=== PATIENT | male | born 1995 | race African-American/Black ===

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

== ENCOUNTER 2021-02-08 07:08 | Emergency (ER) | payer SELFPAY ==
[2021-02-08 07:11] VITALS: RESP 18
[2021-02-08] MEDS ORDERED: KETOROLAC 15 MG/ML 1 ML VIAL IVP STA (07:26)
[2021-02-08] MEDS ORDERED: METOCLOPRAMIDE 5 MG/ML 2 ML VIAL IVP STA (07:26)
[2021-02-08] MEDS ORDERED: diphenhydrAMINE 50 MG/ML 1 ML VIAL IVP STA (07:26)
[2021-02-08] MEDS ORDERED: DEXAMETHASONE SOD PHOSPHATE 10 MG/ML 1 ML VIAL IV STA (07:27)
[2021-02-08] MEDS ORDERED: SODIUM CHLORIDE 0.9% 1,000 ML IV ONE (07:27)
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
[2021-02-08 08:11] LABS: Basophils # (A) 0.1 k/uL (0-0.2); Basophils % (A) 1 %; Eosinophils # (A) 0.2 k/uL (0-0.7); Eosinophils % (A) 2 %; HCT 44.4 % (39.0-53.0); HGB 14.5 gm/dL (13.0-17.5); Lymphocytes # (A) 0.6 k/uL (1.0-4.8); Lymphocytes % (A) 8 %; MCH 33.2 pg (25.0-35.0); MCHC 32.6 g/dL (31.0-37.0); MCV 101.8 fL (80.0-100.0); Macrocytosis Slight; Mean Platelet Volume 7.2; Monocytes # (A) 0.6 k/uL (0-1.0); Monocytes % (A) 8 %; Neutrophils # (A) 5.8 k/uL (1.3-7.7); Neutrophils % (A) 79 %; Platelet Count 199 k/uL (150-450); RBC 4.36 m/uL (4.30-5.90); RDW 12.9 % (11.5-15.5); WBC 7.4 k/uL (3.8-10.6)
[2021-02-08 08:23] LABS: ALT 34 U/L (4-49); AST 38 U/L (17-59); African American GFR (CKD) >90 (>60 ml/min/1.73 sqM); Albumin 4.3 g/dL (3.5-5.0); Alkaline Phosphatase 70 U/L (38-126); Anion Gap 9 mmol/L; Blood Urea Nitrogen 15 mg/dL (9-20); Calcium 9.5 mg/dL (8.4-10.2); Carbon Dioxide 23 mmol/L (22-30); Chloride 107 mmol/L (98-107); Glucose 95 mg/dL (74-99); Non-African American GFR(CKD) >90 (>60 ml/min/1.73 sqM); Potassium 4.3 mmol/L (3.5-5.1); Sodium 139 mmol/L (137-145); Total Bilirubin 0.4 mg/dL (0.2-1.3)
--- NOTE | 2021-02-08 08:50 | ED ---
General Adult HPI - General Chief complaint: Headache Stated complaint: Headache, Chills Time Seen by Provider: 02/08/21 07:10 Source: patient Mode of arrival: ambulatory - History of Present Illness Initial comments: patient is a 25-year-old male with past medical history of mild intermittent asthma who presents emergency Department with reported body aches and headache. Patient had symptoms that started this morning. 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 He is concerned for Covid and is not vaccinated. he denies any neck stiffness , chest pain or shortness of breath. No nausea or vomiting. denies any diarrhea. no known sick contacts. no other alleviating, last cleaner modifying factors - Related Data Home Medications Medication Instructions Recorded Confirmed No Known Home Medications 09/03/16 09/03/16 Allergies Allergy/AdvReac Type Severity Reaction Status Date / Time No Known Allergies Allergy Verified 02/08/21 07:11 Review of Systems ROS Statement: Those systems with pertinent positive or pertinent negative responses have been documented in the HPI. ROS Other: All systems not noted in ROS Statement are negative. Past Medical History Past Medical History: No Reported History History of Any Multi-Drug Resistant Organisms: None Reported Past Surgical History: No Surgical Hx Reported Past Psychological History: No Psychological Hx Reported Smoking Status: Current every day smoker Past Alcohol Use History: None Reported Past Drug Use History: None Reported General Exam General appearance: alert, in no apparent distress Head exam: Present: atraumatic, normocephalic, normal inspection Eye exam: Present: normal appearance, PERRL, EOMI. Absent: scleral icterus, conjunctival injection, periorbital swelling ENT exam: Present: normal exam, mucous membranes moist Neck exam: Present: normal inspection. Absent: tenderness, meningismus, lymphadenopathy Respiratory exam: Present: normal lung sounds bilaterally. Absent: respiratory distress, wheezes, rales, rhonchi, stridor Cardiovascular Exam: Present: regular rate, normal rhythm, normal heart sounds. Absent: systolic murmur, diastolic murmur, rubs, gallop, clicks GI/Abdominal exam: Present: soft, normal bowel sounds. Absent: distended, tenderness, guarding, rebound, rigid Extremities exam: Present: normal inspection, full ROM, normal capillary refill. Absent: tenderness, pedal edema, joint swelling, calf tenderness Back exam: Present: normal inspection Neurological exam: Present: alert, oriented X3, CN II-XII intact Psychiatric exam: Present: normal affect, normal mood Skin exam: Present: warm, dry, intact, normal color. Absent: rash Course Vital Signs 02/08/21 02/08/21 02/08/21 07:09 11:30 12:41 Temperature 98.9 F 98.4 F 98.4 F Pulse Rate 88 74 74 Respiratory 18 18 18 Rate Blood Pressure 120/61 121/77 121/77 O2 Sat by Pulse 98 99 99 Oximetry Medical Decision Making - Medical Decision Making Upon arrival the patient was placed into room 14. A thorough history and physical exam is performed. IV is established the patient is given a migraine cocktail. Laboratory studies were conducted. Patient was swabbed for Covid. Chest x-ray is performed. Laboratory studies are remarkable for a positive Covid swab. Chest x-ray demonstrates no acute process. Patient is reevaluated and has improvement in his headache. He is offered Regen infusion at this time. Patient does receive infusion without issue. He will be discharged home and is to follow-up with his primary care doctor within 2-4 days. Ronnye until his symptoms improve. Return to the emergency room for any new or worsening symptoms. Patient was discharged home in stable condition - Lab Data Result diagrams: 02/08/21 07:57 02/08/21 07:57 Lab Results 02/08/21 02/08/21 02/08/21 Range/Units 07:57 07:57 07:57 WBC 7.4 (3.8-10.6) k/uL RBC 4.36 (4.30-5.90) m/uL Hgb 14.5 (13.0-17.5) gm/dL Hct 44.4 (39.0-53.0) % MCV 101.8 H (80.0-100.0) fL MCH 33.2 (25.0-35.0) pg MCHC 32.6 (31.0-37.0) g/dL RDW 12.9 (11.5-15.5) % Plt Count 199 (150-450) k/uL MPV 7.2 Neutrophils % 79 % Lymphocytes % 8 % Monocytes % 8 % Eosinophils % 2 % Basophils % 1 % Neutrophils # 5.8 (1.3-7.7) k/uL Lymphocytes # 0.6 L (1.0-4.8) k/uL Monocytes # 0.6 (0-1.0) k/uL Eosinophils # 0.2 (0-0.7) k/uL Basophils # 0.1 (0-0.2) k/uL Macrocytosis Slight Sodium 139 (137-145) mmol/L Potassium 4.3 (3.5-5.1) mmol/L Chloride 107 (98-107) mmol/L Carbon Dioxide 23 (22-30) mmol/L Anion Gap 9 mmol/L BUN 15 (9-20) mg/dL Creatinine 0.88 (0.66-1.25) mg/dL Est GFR (CKD-EPI)AfAm >90 (>60 ml/min/1.73 sqM) Est GFR (CKD-EPI)NonAf >90 (>60 ml/min/1.73 sqM) Glucose 95 (74-99) mg/dL Calcium 9.5 (8.4-10.2) mg/dL Total Bilirubin 0.4 (0.2-1.3) mg/dL AST 38 (17-59) U/L ALT 34 (4-49) U/L Alkaline Phosphatase 70 (38-126) U/L Total Protein 7.0 (6.3-8.2) g/dL Albumin 4.3 (3.5-5.0) g/dL Coronavirus (PCR) Detected A (Not Detectd) Disposition Clinical Impression: COVID, Headache Disposition: HOME SELF-CARE Condition: Stable Instructions (If sedation given, give patient instructions): Coronavirus Disease 2019 (COVID-19) Additional Instructions: Please follow up with your PCP in 2-4 days. Return to the ED for any new or worsening symptoms. Is patient prescribed a controlled substance at d/c from ED?: No Referrals: None,Stated [Primary Care Provider] - 1-2 days Time of Disposition: 08:50
[2021-02-08] MEDS ORDERED: SODIUM CHLORIDE 0.9% 50 ML IVPB ONE (10:45)
[2021-02-08] MEDS ORDERED: CASIRIVIMAB (REGN10933) (EUA) 600 MG, IMDEVIMAB (REGN10987) (EUA) 600 MG in SODIUM CHLO... IVPB ONE (11:15)
[2021-02-08 11:53] VITALS: BP 121/77; PULSE 74; TEMP 98.4
== END 2021-02-08 12:41 | disposition home or self-care (01) ==
LOC: EC 07:08
DX: U07.1 COVID-19 (principal); R51.9 Headache, unspecified; F17.200 Nicotine dependence, unspecified, uncomplicated; J45.20 Mild intermittent asthma, uncomplicated
CPT/HCPCS: 36415; 80053; 85025; 87635; 71046; 99284; 96365; 96375; 96361; J1200; J1100; J2765; J1885; Q0243

== ENCOUNTER 2022-05-05 09:39 | Emergency (ER) | payer OTHER ==
[2022-05-05 09:47] VITALS: BP 110/59; PULSE 94; RESP 20; TEMP 97.6
[2022-05-05] MEDS ORDERED: dexAMETHasone 2 MG TAB PO STA (10:02)
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
== END 2022-05-05 10:23 | disposition home or self-care (01) ==
LOC: EC 09:39
DX: R22.30 Localized swelling, mass and lump, unspecified upper limb (principal); J45.909 Unspecified asthma, uncomplicated; F17.200 Nicotine dependence, unspecified, uncomplicated
CPT/HCPCS: 99283; J8540

== ENCOUNTER 2022-06-11 06:29 | Emergency (ER) | payer OTHER ==
[2022-06-11 06:48] VITALS: TEMP 98.5
[2022-06-11] MEDS ORDERED: KETOROLAC 15 MG/ML 1 ML VIAL IVP STA (07:02)
[2022-06-11] MEDS ORDERED: diphenhydrAMINE 50 MG/ML 1 ML VIAL IVP STA (07:02)
[2022-06-11] MEDS ORDERED: METOCLOPRAMIDE 5 MG/ML 2 ML VIAL IVP STA (07:02)
[2022-06-11] MEDS ORDERED: SODIUM CHLORIDE 0.9% 1,000 ML IV STA (07:02)
--- NOTE | 2022-06-11 07:08 | ED ---
General Adult HPI - General Chief complaint: Syncope Stated complaint: Headache, Syncope Time Seen by Provider: 06/11/22 06:49 Source: patient, RN notes reviewed Mode of arrival: wheelchair Limitations: no limitations - History of Present Illness Initial comments: 27-year-old male presents emergency Department with chief complaint of headache, syncopal episode. Patient states that he woke up with a headache which is very atypical states is very severe in the frontal aspect. Patient states he also passed out this morning which is not unusual for the patient per significant other. 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 Patient states he does not feel lightheaded or dizzy at this time denies fevers chills cough or cold-like symptoms no chest pain or shortness breath no focal weakness denies any head trauma with this fall. - Related Data Previous Rx's Medication Instructions Recorded dexAMETHasone [Decadron] 4 mg PO DAILY #3 tab 05/05/22 Allergies Allergy/AdvReac Type Severity Reaction Status Date / Time No Known Allergies Allergy Verified 06/11/22 06:48 Review of Systems ROS Statement: Those systems with pertinent positive or pertinent negative responses have been documented in the HPI. ROS Other: All systems not noted in ROS Statement are negative. Past Medical History Past Medical History: Asthma History of Any Multi-Drug Resistant Organisms: None Reported Past Surgical History: No Surgical Hx Reported Past Psychological History: No Psychological Hx Reported Smoking Status: Current every day smoker Past Alcohol Use History: None Reported Past Drug Use History: None Reported General Exam General appearance: alert, in no apparent distress Head exam: Present: atraumatic, normocephalic, normal inspection Eye exam: Present: normal appearance, PERRL, EOMI. Absent: scleral icterus, conjunctival injection, periorbital swelling ENT exam: Present: normal exam, normal oropharynx, mucous membranes moist Neck exam: Present: normal inspection, full ROM. Absent: tenderness, meningismus, lymphadenopathy Respiratory exam: Present: normal lung sounds bilaterally. Absent: respiratory distress, wheezes, rales, rhonchi, stridor Cardiovascular Exam: Present: regular rate, normal rhythm, normal heart sounds. Absent: systolic murmur, diastolic murmur, rubs, gallop, clicks Neurological exam: Present: alert, oriented X3, CN II-XII intact. Absent: motor sensory deficit Skin exam: Present: warm, dry, intact, normal color. Absent: rash Course Vital Signs 06/11/22 06/11/22 06/11/22 06:41 07:14 07:19 Temperature 98.5 F Pulse Rate 79 Pulse Rate [ 75 Right Sitting] Pulse Rate [ 97 Right Standing] Pulse Rate [ 84 Right Supine Pulse Oximetery ] Respiratory 19 16 Rate Blood Pressure 128/73 Blood Pressure 127/68 [Right Arm Sitting] Blood Pressure 118/80 [Right Arm Standing] Blood Pressure 120/73 [Right Arm Supine] O2 Sat by Pulse 99 Oximetry EKG Findings - EKG Comments: EKG Findings:: EKG performed at 7:32 sinus rhythm rate of 71 MT 178 QRS 91 QT/QTC 343/366 - EKG Results: EKG: interpreted by MAO Medical Decision Making - Medical Decision Making 27-year-old male presented for migraine-type headache which is atypical for p atient CT was obtained given patient's symptoms CT interpreted by me and radiology no acute process. Patient's laboratory unremarkable patient is currently asymptomatic denies chest pain or shortness of breath. Patient donates plasma and has is had a vasovagal syncope. Patient denies increase flu ids, patient denies any needs to follow-up PCP be cleared dryive - Lab Data Result diagrams: 06/11/22 07:50 06/11/22 07:50 Lab Results 06/11/22 06/11/22 Range/Units 07:50 07:50 WBC 6.1 (3.8-10.6) k/uL RBC 4.46 (4.30-5.90) m/uL Hgb 14.7 (13.0-17.5) gm/dL Hct 44.6 (39.0-53.0) % MCV 100.0 (80.0-100.0) fL MCH 33.0 (25.0-35.0) pg MCHC 33.0 (31.0-37.0) g/dL RDW 11.9 (11.5-15.5) % Plt Count 279 (150-450) k/uL MPV 7.2 Neutrophils % 60 % Lymphocytes % 29 % Monocytes % 6 % Eosinophils % 2 % Basophils % 1 % Neutrophils # 3.7 (1.3-7.7) k/uL Lymphocytes # 1.8 (1.0-4.8) k/uL Monocytes # 0.4 (0-1.0) k/uL Eosinophils # 0.1 (0-0.7) k/uL Basophils # 0.0 (0-0.2) k/uL Sodium 140 (137-145) mmol/L Potassium 4.2 (3.5-5.1) mmol/L Chloride 113 H (98-107) mmol/L Carbon Dioxide 23 (22-30) mmol/L Anion Gap 4 mmol/L BUN 12 (9-20) mg/dL Creatinine 0.97 (0.66-1.25) mg/dL Est GFR (CKD-EPI)AfAm >90 (>60 ml/min/1.73 sqM) Est GFR (CKD-EPI)NonAf >90 (>60 ml/min/1.73 sqM) Glucose 91 (74-99) mg/dL Calcium 8.8 (8.4-10.2) mg/dL Magnesium 1.8 (1.6-2.3) mg/dL Total Bilirubin 0.4 (0.2-1.3) mg/dL AST 32 (17-59) U/L ALT 28 (4-49) U/L Alkaline Phosphatase 57 (38-126) U/L Total Protein 6.4 (6.3-8.2) g/dL Albumin 3.9 (3.5-5.0) g/dL Disposition Clinical Impression: Vasovagal syncope, Migraine Disposition: HOME SELF-CARE Condition: Stable Instructions (If sedation given, give patient instructions): Syncope (ED) Additional Instructions: Please return to the Emergency Department if symptoms worsen or any other concerns. Is patient prescribed a controlled substance at d/c from ED?: No Referrals: None,Stated [Primary Care Provider] - 1-2 days Time of Disposition: 08:42
[2022-06-11 07:15] VITALS: RESP 16
[2022-06-11 07:56] LABS: Basophils % (A) 1 %; Eosinophils # (A) 0.1 k/uL (0-0.7); Eosinophils % (A) 2 %; HCT 44.6 % (39.0-53.0); HGB 14.7 gm/dL (13.0-17.5); Lymphocytes # (A) 1.8 k/uL (1.0-4.8); Lymphocytes % (A) 29 %; Mean Platelet Volume 7.2; Monocytes # (A) 0.4 k/uL (0-1.0); Monocytes % (A) 6 %; Neutrophils # (A) 3.7 k/uL (1.3-7.7); Neutrophils % (A) 60 %; Platelet Count 279 k/uL (150-450); RBC 4.46 m/uL (4.30-5.90); RDW 11.9 % (11.5-15.5); WBC 6.1 k/uL (3.8-10.6)
[2022-06-11 08:06] LABS: ALT 28 U/L (4-49); AST 32 U/L (17-59); African American GFR (CKD) >90 (>60 ml/min/1.73 sqM); Albumin 3.9 g/dL (3.5-5.0); Alkaline Phosphatase 57 U/L (38-126); Anion Gap 4 mmol/L; Blood Urea Nitrogen 12 mg/dL (9-20); Calcium 8.8 mg/dL (8.4-10.2); Carbon Dioxide 23 mmol/L (22-30); Chloride 113 mmol/L (98-107); Glucose 91 mg/dL (74-99); Magnesium 1.8 mg/dL (1.6-2.3); Non-African American GFR(CKD) >90 (>60 ml/min/1.73 sqM); Potassium 4.2 mmol/L (3.5-5.1); Sodium 140 mmol/L (137-145); Total Bilirubin 0.4 mg/dL (0.2-1.3); Total Protein 6.4 g/dL (6.3-8.2)
--- NOTE | 2022-06-11 08:31 | CT ---
EXAMINATION TYPE: CT brain wo con DATE OF EXAM: 06/11/2022 COMPARISON: 09/03/2016 HISTORY: Severe headache CT DLP: [address] of the brain was performed. The ventricles, basal cisterns and sulci overlying the cerebral convexities demonstrate a normal appe arance. There is no evidence for intracranial hemorrhage or sulcal effacement. No mass effects are seen. Osseous calvarium is intact. If symptoms persist consider MRI as clinically warranted. IMPRESSION: 1. No acute intracranial process is seen at this time.
[2022-06-11 09:23] VITALS: BP 113/70; PULSE 68
== END 2022-06-11 09:23 | disposition home or self-care (01) ==
LOC: EC 06:29
DX: R55 Syncope and collapse (principal); G43.909 Migraine, unspecified, not intractable, without status migrainosus; J45.909 Unspecified asthma, uncomplicated; F17.200 Nicotine dependence, unspecified, uncomplicated
CPT/HCPCS: 36415; 93005; 80053; 83735; 85025; 70450; 99284; 96374; 96375 ×2; 96361 ×2; J1200; J2765; J1885

== ENCOUNTER 2024-02-19 06:34 | Day surgery (SDC) | payer SELFPAY ==
[~2024-02-19 06:34] MED LIST: SODIUM CHLORIDE 0.9% 1,000 ML IV SCH
[2024-02-19] MEDS: SODIUM CHLORIDE 0.9% 500 ML 500 ML IV ONE (07:16)
[2024-02-19 07:20] VITALS: BP 119/65; PULSE 59; RESP 16; TEMP 97.4
--- NOTE | 2024-02-19 11:38 | P.EPPROC ---
- EP Procedure Note Electrophysiology Procedure Note: Diagnosis Recurrent syncope Twelve-lead EKG shows sinus rhythm normal LA early repolarization abnormality, normal variation Normal QT interval, no delta waves no epsilon waves normal ST segments in the precordial leads Tilt table test per protocol Baseline blood pressure 130/64 mmHg pulse rate in the 60s Patient was tilted upright in angle of 70 degrees per protocol No change in heart rate or blood pressure Patient reported lightheadedness repeatedly without any change in heart rate or blood pressure Impression Normal twelve-lead EKG Normal heart rate and blood pressure response to upright tilting Patient complained of several episodes of lightheadedness WITHOUT any associated change in heart rate or blood pressure
== END 2024-02-19 08:50 | disposition home or self-care (01) ==
LOC: CATHEP 06:34
PROVIDERS: ATTEND Internal Medicine Clinical Cardiac Electrophysiology
DX: R55 Syncope and collapse
CPT/HCPCS: 93660

== ENCOUNTER 2024-04-26 19:49 | Emergency (ER) | payer SELFPAY ==
[2024-04-26 20:54] LABS: Basophils % (A) 0 %; Eosinophils # (A) 0.1 k/uL (0-0.7); Eosinophils % (A) 2 %; HCT 40.2 % (39.0-53.0); HGB 13.1 gm/dL (13.0-17.5); Lymphocytes # (A) 2.5 k/uL (1.0-4.8); Lymphocytes % (A) 36 %; MCH 32.3 pg (25.0-35.0); MCHC 32.5 g/dL (31.0-37.0); MCV 99.4 fL (80.0-100.0); Mean Platelet Volume 6.9; Monocytes # (A) 0.4 k/uL (0-1.0); Monocytes % (A) 6 %; Neutrophils # (A) 3.8 k/uL (1.3-7.7); Neutrophils % (A) 54 %; Platelet Count 239 k/uL (150-450); RBC 4.04 m/uL (4.30-5.90); RDW 12.6 % (11.5-15.5)
--- NOTE | 2024-04-26 20:58 | XR ---
EXAMINATION TYPE: XR chest 2V DATE OF EXAM: 04/26/2024 8:49 PM COMPARISON: Chest radiographs from 02/08/2021 CLINICAL INDICATION: Male, 29 years old with history of Chest Pain; TECHNIQUE: XR chest 2V Frontal and lateral views of the chest. FINDINGS: Lungs/Pleura: There is no evidence of pleural effusion, focal consolidation, or pneumothorax. Pulmonary vascularity: Unremarkable. Heart/mediastinum: Cardiomediastinal silhouette is unremarkable. Musculoskeletal: No acute osseous pathology. IMPRESSION: No acute cardiopulmonary disease/process. [facility], , 04/26/2024 8:56 PM
[2024-04-26 21:11] LABS: Prothrombin Time 10.7 sec (10.0-12.5)
[2024-04-26 21:22] LABS: ALT 32 U/L (4-49); AST 34 U/L (17-59); African American GFR (CKD) >90 (>60 ml/min/1.73 sqM); Albumin 4.4 g/dL (3.5-5.0); Alkaline Phosphatase 62 U/L (38-126); Anion Gap 6 mmol/L; Blood Urea Nitrogen 15 mg/dL (9-20); Calcium 9.2 mg/dL (8.4-10.2); Carbon Dioxide 24 mmol/L (22-30); Chloride 109 mmol/L (98-107); Glucose 90 mg/dL (74-99); Magnesium 1.7 mg/dL (1.6-2.3); Non-African American GFR(CKD) >90 (>60 ml/min/1.73 sqM); Potassium 3.7 mmol/L (3.5-5.1); Sodium 139 mmol/L (137-145); Total Bilirubin 0.4 mg/dL (0.2-1.3); Total Protein 7.2 g/dL (6.3-8.2)
[2024-04-26] MEDS: ASPIRIN 81 MG PO STA (21:31)
--- NOTE | 2024-04-26 22:19 | ED ---
Chest Pain HPI - General Chief Complaint: Chest Pain Stated Complaint: Chest Pain,SOB Time Seen by Provider: 04/26/24 20:43 Source: patient Mode of arrival: ambulatory Limitations: no limitations - History of Present Illness Initial Comments: 29-year-old male presenting with chief complaint of chest pain. Patient states that today he was running around playing with his son when he started to have chest pain and had a near syncopal event. Patient states that he is had these episodes in the past and is currently following with Dr. Grady. Patient has had a stress test, tilt table test, and automotive general sales manager, he has an echo scheduled for may. He then had another episode later on today. The pain is a pressure-like pain on the left side of his chest. He did have some shortness of breath during the episode as well. He denies any alleviating or aggravating factors. No abdominal pain, nausea, vomiting. No lower extremity swelling. No recent surgery, travel, or hormone use. No cough, congestion, sore throat, fever, chills. - Related Data Home Medications Medication Instructions Recorded Confirmed Albuterol Inhaler [Ventolin Hfa 1 - 2 puff INHALATION Q6H PRN 02/18/24 02/19/24 Inhaler] Allergies Allergy/AdvReac Type Severity Reaction Status Date / Time No Known Allergies Allergy Verified 02/19/24 07:23 Review of Systems ROS Statement: Those systems with pertinent positive or pertinent negative responses have been documented in the HPI. ROS Other: All systems not noted in ROS Statement are negative. EKG Findings - EKG Comments: EKG Findings:: Sinus rhythm ventricular rate 81. ID interval 180. QRS 92. QT 334. QTc 372. Normal axis. Past Medical History Past Medical History: Asthma, Syncope Additional Past Medical History / Comment(s): last summer had a few episodes of passing out, has happened several times since then, very brief episodes, family hx. of long QT, see Dr Grady H & P History of Any Multi-Drug Resistant Organisms: None Reported Past Surgical History: No Surgical Hx Reported Additional Past Anesthesia/Blood Transfusion Reaction / Comment(s): no family hx of anesthesia problems Past Psychological History: No Psychological Hx Reported Smoking Status: Current every day smoker Past Alcohol Use History: Occasional Past Drug Use History: None Reported General Exam Limitations: no limitations General appearance: alert, in no apparent distress Head exam: Present: atraumatic, normocephalic, normal inspection Eye exam: Present: normal appearance, PERRL, EOMI Neck exam: Present: normal inspection. Absent: meningismus Respiratory exam: Present: normal lung sounds bilaterally. Absent: respiratory distress, wheezes, rales, rhonchi, stridor Cardiovascular Exam: Present: regular rate, normal rhythm, normal heart sounds. Absent: systolic murmur, diastolic murmur, rubs, gallop, clicks Extremities exam: Absent: pedal edema Neurological exam: Present: alert, oriented X3 Psychiatric exam: Present: normal affect, normal mood Skin exam: Present: warm, dry, normal color Course Vital Signs 04/26/24 04/26/24 04/26/24 19:51 21:33 22:30 Temperature 98.2 F 98.1 F Pulse Rate 87 87 75 Respiratory 18 16 18 Rate Blood Pressure 139/87 132/70 113/72 O2 Sat by Pulse 100 99 99 Oximetry Chest Pain MDM - MDM Was pt. sent in by a medical professional or institution (Dr. PA, CAP LINING MACHINE OPERATOR, urgent care, hospital, or residential...) When possible be specific @ -No Did you speak to anyone other than the patient for history (EMS, parent, family, police, friend...)? What history was obtained from this source @ -No Did you review nursing and triage notes (agree or disagree)? Why? @ -I reviewed and agree with nursing and triage notes Were old charts reviewed (outside hosp., previous admission, EMS record, old EKG, old radiological studies, urgent care reports/EKG's, residential records)? Report findings @ -No old charts were reviewed Differential Diagnosis (chest pain, altered mental status, abdominal pain women, abdominal pain men, vaginal bleeding, weakness, fever, dyspnea, syncope, headache, dizziness, GI bleed, back pain, seizure, CVA, palpatations, mental health, musculoskeletal)? @ -MDM Differential Chest Pain: Stable Angina, Unstable Angina, STEMI, NSTEMI Aortic Dissection, Pneumothorax, Musculoskeletal, Esophageal Spasm GERD, Cholecystitis, Pancreatitis, Zoster This is not meant to be an all-inclusive list. EKG interpreted by me (3pts min.). @ -As above X-rays interpreted by me (1pt min.). @Chest-X-ray shows no acute process CT interpreted by me (1pt min.). @ -None done U/S interpreted by me (1pt. min.). @ -None done What testing was considered but not performed or refused? (CT, X-rays, U/S, labs )? Why? @ -I offered to admit the patient for an echo, patient states he would prefer to be discharged home and follow-up with his dieing out machine operator What meds were considered but not given or refused? Why? @ -None Did you discuss the management of the patient with other professionals (professionals i.e. DrKsenia, PA, CAP LINING MACHINE OPERATOR, lab, RT, psych nurse, case management social worker, pre assembly wirer, teacher, booking police officer, supervisor case loading)? Give summary @ -No Was smoking cessation discussed for >3mins.? @ -No Was critical care preformed (if so, how long)? @ -No Were there social determinants of health that impacted care today? How? (H omelessness, low income, unemployed, alcoholism, drug addiction, transportation, low edu. Level, literacy, decrease access to med. care, [facility], rehab)? @ -No Was there de-escalation of care discussed even if they declined (Discuss DNR or withdrawal of care, Hospice)? DNR status @ -No What co-morbidities impacted this encounter? (DM, HTN, Smoking, COPD, CAD, Cancer, CVA, ARF, Chemo, Hep., AIDS, mental health diagnosis, sleep apnea, morbid obesity)? @ -None Was patient admitted / discharged? Hospital course, mention meds given and route, prescriptions, significant lab abnormalities, going to OR and other pertinent info. @ -29-year-old male presenting with chief complaint of chest pain. Patient also admits to near syncopal episode. Patient has had previous episodes of the symptoms, he is currently following with cardiology and has had multiple tests performed. History and physical examination are conducted. Heart and lungs are clear to auscultation. Lab work is essentially unremarkable. Chest x-ray shows no acute process and EKG shows sinus rhythm with no ischemic changes. On reassessment the patient is resting comfortably. Educated the patient on today's findings. I offered to admit the patient. Patient would prefer discharge home and following up with his dieing out machine operator. Patient is educated on return parameters. Discharged. Follow-up with PCP. Report back to ER with any new or worsening symptoms. Discussed return parameters and answered all questions. Patient conveyed verbal understanding and agreed to the plan. I discussed this case in detail with my attending Dr. Wolfe Undiagnosed new problem with uncertain prognosis? @ -No Drug Therapy requiring intensive monitoring for toxicity (Heparin, Nitro, Insulin, Cardizem)? @ -No Were any procedures done? @ -No Diagnosis/symptom? @ -Chest pain Acute, or Chronic, or Acute on Chronic? @ -Acute Uncomplicated (without systemic symptoms) or Complicated (systemic symptoms)? @ -Default Side effects of treatment? @ -No Exacerbation, Progression, or Severe Exacerbation? @ -No Disposition Clinical Impression: Chest pain Disposition: HOME SELF-CARE Condition: Fair Instructions (If sedation given, give patient instructions): Chest Pain (ED) Additional Instructions: Follow-up with your PCP and dieing out machine operator. Report back to ER with any new or worsening symptoms. You will need an echocardiogram and is important that you follow-up regarding this Is patient prescribed a controlled substance at d/c from ED?: No Referrals: None,Stated [Primary Care Provider] - 1-2 days Nahid Grady MD [STAFF PHYSICIAN] - 1-2 days [facility] [NON-STAFF] - 1-2 days Time of Disposition: 22:19
[2024-04-26 22:32] VITALS: BP 113/72; PULSE 75; RESP 18; TEMP 98.1
== END 2024-04-26 22:30 | disposition home or self-care (01) ==
LOC: EC 19:49
DX: R07.89 Other chest pain (principal); F17.200 Nicotine dependence, unspecified, uncomplicated
CPT/HCPCS: 36415; 71046; 80053; 83735; 84484; 85025; 85610; 85730; 93005; 99285

== ENCOUNTER 2024-06-06 16:36 | Observation (INO) | payer OTHER ==
[2024-06-06] MEDS: SODIUM CHLORIDE 0.9% 1,000 ML IV STA (17:40)
[2024-06-06 17:56] LABS: Basophils % (A) 0 %; Eosinophils # (A) 0.1 k/uL (0-0.7); Eosinophils % (A) 1 %; HCT 43.1 % (39.0-53.0); HGB 13.8 gm/dL (13.0-17.5); Lymphocytes # (A) 2.5 k/uL (1.0-4.8); Lymphocytes % (A) 27 %; MCH 31.9 pg (25.0-35.0); MCV 99.9 fL (80.0-100.0); Mean Platelet Volume 7.2; Monocytes # (A) 0.5 k/uL (0-1.0); Monocytes % (A) 6 %; Neutrophils # (A) 5.8 k/uL (1.3-7.7); Neutrophils % (A) 64 %; Platelet Count 268 k/uL (150-450); RBC 4.31 m/uL (4.30-5.90); RDW 12.4 % (11.5-15.5)
--- NOTE | 2024-06-06 17:58 | XR ---
EXAMINATION TYPE: XR chest 2V DATE OF EXAM: 06/06/2024 5:51 PM COMPARISON: Multiple prior chest radiograph, most recently dated 04/26/2024. CLINICAL INDICATION: Male, 29 years old with history of syncope; [facility] TECHNIQUE: XR chest 2V Frontal and lateral views of the chest. FINDINGS: Lungs/Pleura: There is no evidence of pleural effusion, focal consolidation, or pneumothorax. Pulmonary vascularity: Unremarkable. Heart/mediastinum: Cardiomediastinal silhouette is unremarkable. Musculoskeletal: No acute osseous pathology. Other findings: None IMPRESSION: No acute cardiopulmonary disease/process. [facility], , 06/06/2024 5:56 PM
[2024-06-06 18:13] LABS: Partial Thromboplastin Time 22.3 sec (22.0-30.0); Prothrombin Time 10.8 sec (10.0-12.5)
[2024-06-06 18:25] LABS: ALT 48 U/L (4-49); AST 35 U/L (17-59); African American GFR (CKD) >90 (>60 ml/min/1.73 sqM); Albumin 3.9 g/dL (3.5-5.0); Alkaline Phosphatase 61 U/L (38-126); Anion Gap 5 mmol/L; Blood Urea Nitrogen 13 mg/dL (9-20); Carbon Dioxide 25 mmol/L (22-30); Chloride 108 mmol/L (98-107); Glucose 88 mg/dL (74-99); Non-African American GFR(CKD) >90 (>60 ml/min/1.73 sqM); Potassium 4.1 mmol/L (3.5-5.1); Sodium 138 mmol/L (137-145); Total Bilirubin 0.5 mg/dL (0.2-1.3)
--- NOTE | 2024-06-06 18:41 | CT ---
EXAMINATION TYPE: CT brain sadiaine wo con DATE OF EXAM: 06/06/2024 6:26 PM COMPARISON: 06/11/2022 CLINICAL INDICATION: Male, 29 years old with history of syncope, fall, head injury, syncope, fall, he adache TECHNIQUE: CT of the brain is performed utilizing 3 mm thick sections through the posterior fossa and 3 mm thick sections through the remaining calvarium. Study is performed within 24 hours of arrival to the hospital. Contrast used: mL of , (none if empty) CT DLP: 1467.3 mGycm, Automated exposure control for dose reduction was used. FINDINGS: No abnormal hyperdensity is present to suggest an acute intracranial hemorrhage. No mass lesion is evident. No acute infarcts are evident. Ventricles and sulci are appropriate for the patient age. Paranasal sinuses and mastoid air cells within the [id number] are clear. IMPRESSIONS: 1. No acute intracranial process. Follow-up MRI can be performed as clinically indicated. CT cervical spine. COMPARISON: None TECHNIQUE: CT of the cervical spine is performed in the axial plane at 2 mm thick sections. Reconstr ucted images in the coronal, and sagittal plane are reviewed on the computer. FINDINGS: No acute fractures are evident. There is slight kyphosis which could be related to patient positioning or muscle spasm. Disc heights are preserved. Vertebral body heights are preserved. No spinal canal stenosis is evident. No neural foraminal stenosis is evident. IMPRESSION: 1. No acute osseous abnormality cervical spine. 2. Mild kyphosis which could be related to patient positioning or muscle spasm. [facility], Workstation: [facility], 06/06/2024 6:39 PM
--- NOTE | 2024-06-06 19:57 | ED ---
General Adult HPI - General Chief complaint: Fall Stated complaint: Syncope Time Seen by Provider: 06/06/24 17:10 Source: patient Mode of arrival: ambulatory Limitations: no limitations - History of Present Illness Initial comments: 29-year-old male who presents emergency department after he had a syncopal episode at home. History is provided by the patient's mother who is at bedside. States that the patient has had syncopal episodes for the past 2 months. He is currently under the care of Dr. Grady. He reports to once weekly syncopal episodes if not more. He had a tilt table test and Holter monitoring as well as a stress test to evaluate the etiology of his symptoms. Reports to a family history of prolonged QT syndrome. Today the patient had a syncopal episode where he fell backwards and hit his head off the ground. EMS was called and transported the patient to the hospital. He does report to a headache. He has photophobia. No visual changes. Denies any neck or back pain. No numbness, tingling or weakness in his extremities. The patient was sent out to the waiting room. He had 2 additional syncopal episodes. There was no report of any seizure-like activity. Patient not postictal when he becomes aroused. He denies having any symptoms prior to the episode. Denies any chest pain or difficulty breathing. No other alleviating, precipitating or modifying factors - Related Data Home Medications Medication Instructions Recorded Confirmed Albuterol Inhaler [Ventolin Hfa 1 - 2 puff INHALATION Q6H PRN 02/18/24 02/19/24 Inhaler] Allergies Allergy/AdvReac Type Severity Reaction Status Date / Time No Known Allergies Allergy Verified 06/06/24 17:13 Review of Systems ROS Statement: Those systems with pertinent positive or pertinent negative responses have been documented in the HPI. ROS Other: All systems not noted in ROS Statement are negative. Past Medical History Past Medical History: Asthma, Syncope Additional Past Medical History / Comment(s): last summer had a few episodes of passing out, has happened several times since then, very brief episodes, family hx. of long QT, see Dr Grady H & P History of Any Multi-Drug Resistant Organisms: None Reported Past Surgical History: No Surgical Hx Reported Additional Past Anesthesia/Blood Transfusion Reaction / Comment(s): no family hx of anesthesia problems Past Psychological History: No Psychological Hx Reported Smoking Status: Current every day smoker Past Alcohol Use History: Occasional Past Drug Use History: None Reported General Exam Limitations: no limitations General appearance: alert, in no apparent distress Head exam: Present: atraumatic, normocephalic, normal inspection Eye exam: Present: normal appearance, PERRL, EOMI. Absent: scleral icterus, conjunctival injection, periorbital swelling ENT exam: Present: normal exam, mucous membranes moist Neck exam: Present: normal inspection. Absent: tenderness, meningismus, lymphadenopathy Respiratory exam: Present: normal lung sounds bilaterally. Absent: respiratory distress, wheezes, rales, rhonchi, stridor Cardiovascular Exam: Present: regular rate, normal rhythm, normal heart sounds. Absent: systolic murmur, diastolic murmur, rubs, gallop, clicks GI/Abdominal exam: Present: soft, normal bowel sounds. Absent: distended, tenderness, guarding, rebound, rigid Extremities exam: Present: normal inspection, full ROM, normal capillary refill. Absent: tenderness, pedal edema, joint swelling, calf tenderness Back exam: Present: normal inspection Neurological exam: Present: alert, oriented X3, CN II-XII intact Psychiatric exam: Present: normal affect, normal mood Skin exam: Present: warm, dry, intact, normal color. Absent: rash Course Vital Signs 06/06/24 06/06/24 17:07 19:04 Temperature 98.0 F Pulse Rate 68 74 Respiratory 18 18 Rate Blood Pressure 147/89 126/69 O2 Sat by Pulse 100 98 Oximetry Medical Decision Making - Medical Decision Making Was pt. sent in by a medical professional or institution (, PA, CYTOGENETICS TECHNOLOGIST, urgent care, hospital, or residential...) When possible be specific @ -No Did you speak to anyone other than the patient for history (EMS, parent, family, police, friend...)? What history was obtained from this source @ -Spoke with EMS and mother for history Did you review nursing and triage notes (agree or disagree)? Why? @ -I reviewed and agree with nursing and triage notes Were old charts reviewed (outside hosp., previous admission, EMS record, old EKG, old radiological studies, urgent care reports/EKG's, residential records)? Report findings @ -I reviewed patient's tilt table test from January [address] Sherwood Differential Diagnosis (chest pain, altered mental status, abdominal pain women, abdominal pain men, vaginal bleeding, weakness, fever, dyspnea, syncope, headache, dizziness, GI bleed, back pain, seizure, CVA, palpatations, mental health, musculoskeletal)? @ -Differential Syncope: Valvular disease, hypertrophic cardiomyopathy, pulmonary embolism, tamponade, tachycardia, bradycardia, [place], hypovolemia, hemorrhage, dissection, anemia, intracranial hemorrhage, seizure, hypoglycemia, carbon monoxide poisoning, this is not meant to be an all-inclusive list. EKG interpreted by me (3pts min.). @ -Yes and demonstrates sinus rhythm with a rate of 73. NC interval 176. QRS 90. QTc of 368. No acute ST segment elevation or depression. No signs of Brugada or Cyfhv-Nukmkiztz-Msxfr. X-rays interpreted by me (1pt min.). @ -Yes and demonstrates no acute process CT interpreted by me (1pt min.). @ -Yes and demonstrates no acute process U/S interpreted by me (1pt. min.). @ -None done What testing was considered but not performed or refused? (CT, X-rays, U/S, labs)? Why? @ -None What meds were considered but not given or refused? Why? @ -None Did you discuss the management of the patient with other professionals (prof fine i.e. , PA, CYTOGENETICS TECHNOLOGIST, lab, RT, psych nurse, social sciences research scientist, tanning wheel filler, teacher, armoured corps officer, caseworker)? Give summary @ -Spoke with Lorna from [facility] for admission Was smoking cessation discussed for >3mins.? @ -No Was critical care preformed (if so, how long)? @ -No Were there social determinants of health that impacted care today? How? (Homelessness, low income, unemployed, alcoholism, drug addiction, transportation, low edu. Level, literacy, decrease access to med. care, [facility], rehab)? @ -No Was there de-escalation of care discussed even if they declined (Discuss DNR or withdrawal of care, Hospice)? DNR status @ -No What co-morbidities impacted this encounter? (DM, HTN, Smoking, COPD, CAD, Cancer, CVA, ARF, Chemo, Hep., AIDS, mental health diagnosis, sleep apnea, morbid obesity)? @ -syncope Was patient admitted / discharged? Hospital course, mention meds given and route, prescriptions, significant lab abnormalities, going to OR and other pertinent info. @ -Upon arrival patient seen and evaluated in bed 16. Thorough history and physical exam was performed. Patient is complaining of a headache due to his blunt head trauma. He was given a dose of morphine for pain control and sent over for CT of his head. Laboratory studies were conducted. Results are discussed with the patient. Due to several syncopal episodes today I did recommend admission for cardiology consultation. Patient was agreeable to this. Spoke with Lorna from [facility] for admission Undiagnosed new problem with uncertain prognosis? @ -yes Drug Therapy requiring intensive monitoring for toxicity (Heparin, Nitro, Insulin, Cardizem)? @ -No Were any procedures done? @ -No Diagnosis/symptom? @ -Multiple syncopal episodes, blunt head trauma Acute, or Chronic, or Acute on Chronic? @ -Acute Uncomplicated (without systemic symptoms) or Complicated (systemic symptoms)? @ -Complicated Side effects of treatment? @ -No Exacerbation, Progression, or Severe Exacerbation? @ -No Poses a threat to life or bodily function? How? (Chest pain, [place], [place], pneumonia, PE, COPD, DKA, ARF, appy, cholecystitis, CVA, Diverticulitis, Homicidal, Suicidal, threat to staff... and all critical care pts) @ -No - Lab Data Result diagrams: 06/06/24 17:44 06/06/24 17:44 Lab Results 06/06/24 06/06/24 06/06/24 Range/Units 17:44 17:44 17:44 WBC 9.0 (3.8-10.6) k/uL RBC 4.31 (4.30-5.90) m/uL Hgb 13.8 (13.0-17.5) gm/dL Hct 43.1 (39.0-53.0) % MCV 99.9 (80.0-100.0) fL MCH 31.9 (25.0-35.0) pg MCHC 32.0 (31.0-37.0) g/dL RDW 12.4 (11.5-15.5) % Plt Count 268 (150-450) k/uL MPV 7.2 Neutrophils % 64 % Lymphocytes % 27 % Monocytes % 6 % Eosinophils % 1 % Basophils % 0 % Neutrophils # 5.8 (1.3-7.7) k/uL Lymphocytes # 2.5 (1.0-4.8) k/uL Monocytes # 0.5 (0-1.0) k/uL Eosinophils # 0.1 (0-0.7) k/uL Basophils # 0.0 (0-0.2) k/uL PT 10.8 (10.0-12.5) sec INR 1.0 (<1.2) APTT 22.3 (22.0-30.0) sec Sodium 138 (137-145) mmol/L Potassium 4.1 (3.5-5.1) mmol/L Chloride 108 H (98-107) mmol/L Carbon Dioxide 25 (22-30) mmol/L Anion Gap 5 mmol/L BUN 13 (9-20) mg/dL Creatinine 1.04 (0.66-1.25) mg/dL Est GFR (CKD-EPI)AfAm >90 (>60 ml/min/1.73 sqM) Est GFR (CKD-EPI)NonAf >90 (>60 ml/min/1.73 sqM) Glucose 88 (74-99) mg/dL Calcium 9.0 (8.4-10.2) mg/dL Total Bilirubin 0.5 (0.2-1.3) mg/dL AST 35 (17-59) U/L ALT 48 (4-49) U/L Alkaline Phosphatase 61 (38-126) U/L Troponin I (0.000-0.034) ng/mL Total Protein 6.0 L (6.3-8.2) g/dL Albumin 3.9 (3.5-5.0) g/dL 06/06/24 Range/Units 17:44 WBC (3.8-10.6) k/uL RBC (4.30-5.90) m/uL Hgb (13.0-17.5) gm/dL Hct (39.0-53.0) % MCV (80.0-100.0) fL MCH (25.0-35.0) pg MCHC (31.0-37.0) g/dL RDW (11.5-15.5) % Plt Count (150-450) k/uL MPV Neutrophils % % Lymphocytes % % Monocytes % % Eosinophils % % Basophils % % Neutrophils # (1.3-7.7) k/uL Lymphocytes # (1.0-4.8) k/uL Monocytes # (0-1.0) k/uL Eosinophils # (0-0.7) k/uL Basophils # (0-0.2) k/uL PT (10.0-12.5) sec INR (<1.2) APTT (22.0-30.0) sec Sodium (137-145) mmol/L Potassium (3.5-5.1) mmol/L Chloride (98-107) mmol/L Carbon Dioxide (22-30) mmol/L Anion Gap mmol/L BUN (9-20) mg/dL Creatinine (0.66-1.25) mg/dL Est GFR (CKD-EPI)AfAm (>60 ml/min/1.73 sqM) Est GFR (CKD-EPI)NonAf (>60 ml/min/1.73 sqM) Glucose (74-99) mg/dL Calcium (8.4-10.2) mg/dL Total Bilirubin (0.2-1.3) mg/dL AST (17-59) U/L ALT (4-49) U/L Alkaline Phosphatase (38-126) U/L Troponin I <0.012 (0.000-0.034) ng/mL Total Protein (6.3-8.2) g/dL Albumin (3.5-5.0) g/dL Disposition Clinical Impression: Syncope, Head injury Disposition: ADMITTED IP TO THIS [facility] Condition: Stable Is patient prescribed a controlled substance at d/c from ED?: No Time of Disposition: 20:02 Decision to Admit Reason: Admit from EC Decision Date: 06/06/24 Decision Time: 20:02
[2024-06-06] MEDS ORDERED: NALOXONE 0.4 MG/ML 1 ML VIAL IV PRN (20:02)
[2024-06-06] MEDS ORDERED: ACETAMINOPHEN TAB 325 MG TAB PO PRN (20:02)
[2024-06-06] MEDS: SODIUM CHLORIDE 0.9% 1,000 ML IV SCH (20:45)
[2024-06-07] MEDS: MORPHINE SULFATE 4 MG/ML SYRINGE IVP STA ×2 (04:34→04:37)
[2024-06-07 08:56] LABS: Blood Urea Nitrogen 8.7 mg/dL (9.0-27.0); Calcium 8.4 mg/dL (8.7-10.3); Carbon Dioxide 21.4 mmol/L (21.6-31.8); Chloride 112 mmol/L (96-109); Glucose 88 mg/dL (70-110); Potassium 4.3 mmol/L (3.5-5.5); Sodium 141 mmol/L (135-145)
--- NOTE | 2024-06-07 10:16 | CA ---
Transthoracic Echo Report Name: Charlotte Zapata Age: 29 Gender: M : 1995 Exam Date: 06/07/2024 08:38 Exam Location: [place] [facility] Ht (in): 69 Wt (lb): 207 Ordering Physician: Dalia Wolfe DO Attending/Referring Phys: [id number], [facility] Worker Jen Bunch, [id number] Procedure CPT: Indications: Syncope Cardiac Hx: Technical Quality: Good Contrast 1: Total Dose (mL): Contrast 2: Total Dose (mL): MEASUREMENTS (Male / Female) Normal Values 2D ECHO LV Diastolic Diameter PLAX 4.4 cm 4.2 - 5.9 / 3.9 - 5.3 cm LV Systolic Diameter PLAX 3.2 cm IVS Diastolic Thickness 1.3 cm 0.6 - 1.0 / 0.6 - 0.9 cm LVPW Diastolic Thickness 1.2 cm 0.6 - 1.0 / 0.6 - 0.9 cm LV Relative Wall Thickness 0.6 RV Internal Dim ED PLAX 3.3 cm LA Systolic Diameter LX 3.1 cm 3.0 - 4.0 / 2.7 - 3.8 cm LA Volume 58.5 cm??? 18 - 58 / 22 - 52 cm??? LA Volume Index 27.0 cm???/m??? 16 - 28 cm???/m??? M-MODE Aortic Root Diameter MM 3.5 cm AV Cusp Separation MM 3.0 cm DOPPLER AV Peak Velocity 101.6 cm/s AV Peak Gradient 4.1 mmHg MV Area PHT 3.4 cm??? Mitral E Point Velocity 86.3 cm/s Mitral A Point Velocity 52.9 cm/s Mitral E to A Ratio 1.6 MV Deceleration Time 222.2 ms FINDINGS Left Ventricle Left ventricular ejection fraction is estimated at 50-55 %. Left ventricular cavity size normal. Mildly increased septal wall thickness. No obvious regional wall motion abnormalities. Right Ventricle Normal right ventricular size and function. Unable to estimate the right ventricular systolic pressure. Right Atrium Normal right atrial size. No spontaneous contrast in the right atrium. Left Atrium Normal left atrial size. No left atrial thrombus or mass present. Mitral Valve Structurally normal mitral valve. No mitral stenosis, regurgitation or prolapse. Aortic Valve Trileaflet aortic valve. No aortic valve stenosis or regurgitation. Tricuspid Valve Structurally normal tricuspid valve. No tricuspid stenosis, regurgitation or prolapse. Pulmonic Valve Structurally normal pulmonic valve. Mild pulmonic regurgitation. Pericardium No pericardial or pleural effusion. Aorta Normal size aortic root and proximal ascending aorta. CONCLUSIONS Normal LV function Previewed by: Dr. Mk Morel MD (Electronically Signed) Final Date: 07 June 2024 10:15
[2024-06-07 10:33] LABS: Basophils # (A) 0.02 X 10*3/uL (0.00-0.10); Basophils % (A) 0.4 %; Eosinophils # (A) 0.11 X 10*3/uL (0.04-0.35); HCT 41.3 % (39.6-50.0); HGB 12.7 g/dL (13.0-17.0); Lymphocytes # (A) 2.08 X 10*3/uL (0.90-5.00); Lymphocytes % (A) 38.4 %; MCH 31.4 pg (27.0-32.0); MCHC 30.8 g/dL (32.0-37.0); Monocytes # (A) 0.44 X 10*3/uL (0.20-1.00); Monocytes % (A) 8.1 %; NRBC Per 100 WBC 0 X 10*3/uL (0.00-0.01); Neutrophils # (A) 2.75 X 10*3/uL (1.80-7.70); Neutrophils % (A) 50.9 %; Platelet Count 233 X 10*3/uL (140-440); RBC 4.05 X 10*6/uL (4.40-5.60); RDW 12.4 % (11.5-14.5); WBC 5.41 X 10*3/uL (4.50-10.00)
--- NOTE | 2024-06-07 10:49 | P.CRDCN ---
History of Present Illness History of present illness: HISTORY OF PRESENT ILLNESS: This is a 29-year-old male with a past medical history significant for syncope. Patient follows in the office with Dr. Grady. [facility] Patient examined at the bedside in the emergency room. Patient states he had a severe migraine yesterday. He states he had a syncopal episode yesterday as well. The patient has a history of recurrent syncope. He is underwent extensive evaluation on an outpatient basis. Apparently the patient also had 2 syncopal episodes while sitting in the waiting room however, details of this are unknown. The patient currently denies any chest pain or pressure. Denies shortness of breath. Denies dizziness or lightheadedness. Vital signs are stable. DIAGNOSTICS: - EKG reveals sinus mechanism with no signs of acute ischemia - Chest xray negative for acute process - Laboratory data: WBC 5.41. Hemoglobin 12.7. Platelet count 233. Sodium 140. Potassium 4.3. BUN 8.7. Creatinine 1.0. Troponin negative x 1. - Current home cardiac medications include none - Echocardiogram completed revealing ejection fraction 50 to 55%, no obvious regional wall motion abnormalities, and no significant valvular dysfunction REVIEW OF SYSTEMS: At the time of my exam: CONSTITUTIONAL: Denies fever or chills. HEENT: Denies blurred vision, vision changes, or eye pain. Denies hemoptysis CARDIOVASCULAR: Denies chest pain. Denies orthopnea. Denies PND. Denies palpitations RESPIRATORY: Denies shortness of breath. GASTROINTESTINAL: Denies abdominal pain. Denies nausea or vomiting. HEMATOLOGIC: Denies bleeding disorders. GENITOURINARY: Denies any blood in urine. SKIN: Denies pruitis. Denies rash. PHYSICAL EXAM: VITAL SIGNS: Reviewed. GENERAL: Well-developed in no acute distress. HEENT: Head is normocephalic. Pupils are equal, round. Sclerae anicteric. Mucous membranes of the mouth are moist. Neck supple. No JVD or thyromegaly LUNGS: Respirations even and unlabored. Lungs essentially clear to auscultation bilaterally. HEART: Regular rate and rhythm. S1 and S2 heard. ABDOMEN: Soft. Nondistended. Nontender. EXTREMITIES: Normal range of motion. No clubbing or cyanosis. Peripheral pulses intact. No lower extremity edema NEUROLOGIC: Awake and alert. Oriented x 3. ASSESSMENT: Migraine Syncope, possibly secondary to migraine History of recurrent syncope PLAN: 2D echo obtained and reviewed Patient underwent tilt table testing in January 2024 which was unremarkable Patient also had heart monitor in the past due to syncope with no arrhythmias noted Patient underwent stress echocardiogram in December 2023 which was negative for ischemia or arrhythmias If patient remains stable, he may be discharged home today and follow-up in the office with Dr. Grady Nurse practitioner note has been reviewed by physician. Signing provider agrees with the documented findings, assessment, and plan of care documented by LADLE LINER HELPER as a scribe. Past Medical History Past Medical History: Asthma, Syncope Additional Past Medical History / Comment(s): last summer had a few episodes of passing out, has happened several times since then, very brief episodes, family hx. of long QT, see Dr Grady H & P History of Any Multi-Drug Resistant Organisms: None Reported Past Surgical History: No Surgical Hx Reported Additional Past Anesthesia/Blood Transfusion Reaction / Comment(s): no family hx of anesthesia problems Past Psychological History: No Psychological Hx Reported Smoking Status: Current every day smoker Past Alcohol Use History: Occasional Past Drug Use History: None Reported Medications and Allergies Home Medications Medication Instructions Recorded Confirmed Type No Known Home Medications 06/07/24 06/07/24 History Allergies Allergy/AdvReac Type Severity Reaction Status Date / Time No Known Allergies Allergy Verified 06/07/24 08:07 Physical Exam Vitals: Vital Signs Temp Pulse Resp BP Pulse Ox 06/07/24 07:32 62 16 104/84 97 06/07/24 02:00 57 L 17 114/62 96 06/06/24 19:04 74 18 126/69 98 06/06/24 17:07 98.0 F 68 18 147/89 100 Intake and Output 06/06/24 06/07/24 06/07/24 22:59 06:59 14:59 Other: Weight 93.894 kg Results 06/07/24 05:54 06/07/24 05:54 Cardiac Enzymes 06/06/24 06/06/24 Range/Units 17:44 17:44 AST 35 (17-59) U/L Troponin I <0.012 (0.000-0.034) ng/mL Coagulation 06/06/24 Range/Units 17:44 PT 10.8 (10.0-12.5) sec APTT 22.3 (22.0-30.0) sec CBC 06/06/24 06/07/24 Range/Units 17:44 05:54 WBC 9.0 5.41 (3.8-10.6) k/uL RBC 4.31 4.05 L (4.30-5.90) m/uL Hgb 13.8 12.7 L (13.0-17.5) gm/dL Hct 43.1 41.3 (39.0-53.0) % Plt Count 268 233 (150-450) k/uL Comprehensive Metabolic Panel 06/06/24 06/07/24 Range/Units 17:44 05:54 Sodium 138 141 (137-145) mmol/L Potassium 4.1 4.3 (3.5-5.1) mmol/L Chloride 108 H 112 H (98-107) mmol/L Carbon Dioxide 25 21.4 L (22-30) mmol/L BUN 13 8.7 L (9-20) mg/dL Creatinine 1.04 1.0 (0.66-1.25) mg/dL Glucose 88 88 (74-99) mg/dL Calcium 9.0 8.4 L (8.4-10.2) mg/dL AST 35 (17-59) U/L ALT 48 (4-49) U/L Alkaline Phosphatase 61 (38-126) U/L Total Protein 6.0 L (6.3-8.2) g/dL Albumin 3.9 (3.5-5.0) g/dL Current Medications Generic Name Dose Route Start Last Admin Trade Name Rodríguezq PRN Reason Stop Dose Admin Acetaminophen 650 mg 06/06/24 20:02 Acetaminophen Tab 325 Mg Tab PO Q6HR PRN Mild Pain or Fever > 100.5 Sodium Chloride 1,000 mls @ 130 mls/hr 06/06/24 20:15 06/07/24 03:15 Saline 0.9% IV Not Given .[id number] LINN Naloxone HCl 0.2 mg 06/06/24 20:02 Naloxone 0.4 Mg/Ml 1 Ml Vial IV Q2M PRN Opioid Reversal Intake and Output 06/06/24 06/07/24 06/07/24 22:59 06:59 14:59 Other: Weight 93.894 kg 06/07/24 05:54 06/07/24 05:54
--- NOTE | 2024-06-07 12:02 | P.HPIM ---
History of Present Illness Patient is a pleasant 29-year-old pleasant male came in after syncopal episode followed by possible seizure-like activity with tonic-clonic activity and upper part of the body. Patient denied any fever chills nausea vomiting. Patient was having migraine since day before and had few episodes of syncope. Patient had syncopized in the past as well. Patient occasionally has aura with migraine. Patient does not have any anion gap or lactic acidosis. EKG showed sinus rhythm chest x-ray did not show any significant abnormality only abnormalities his MCV is 101. Echocardiogram was done patient showed any wall abnormalities normal ejection fraction. REVIEW OF SYSTEMS: All other systems are negative except those mentioned in the HPI PHYSICAL EXAMINATION: GENERAL: The patient is alert and oriented x3, not in any acute distress. Well developed, well nourished. HEENT: Pupils are round and equally reacting to light. EOMI. No scleral icterus. No conjunctival pallor. Normocephalic, atraumatic. No pharyngeal erythema. No thyromegaly. CARDIOVASCULAR: S1 and S2 present. No murmurs, rubs, or gallops. PULMONARY: Chest is clear to auscultation, no wheezing or crackles. ABDOMEN: Soft, nontender, nondistended, normoactive bowel sounds. No palpable organomegaly. MUSCULOSKELETAL: No joint swelling or deformity. EXTREMITIES: No cyanosis, clubbing, or pedal edema. NEUROLOGICAL: Gross neurological examination did not reveal any focal deficits. SKIN: No rashes. Assessment and plan -Syncope believed to be secondary to migraine. Patient may have syncope induced with seizure his migraine is better. Patient did take Advil which did not help -History of migraine with aura patient will be given a prescription for Compazine and asked to take Benadryl as needed if he takes more than 2 pills of Compazine for migraine headache. I offered the patient to see a neurologist here as an outpatient patient wishes to follow-up with her neurologist as an outpatient. -Elevated MCV without any anemia patient was referred to PCP and recommend doing B12 and RBC folate as an outpatient. Patient will be discharged today Past Medical History Past Medical History: Asthma, Syncope Additional Past Medical History / Comment(s): last summer had a few episodes of passing out, has happened several times since then, very brief episodes, family hx. of long QT, see Dr Grady H & P History of Any Multi-Drug Resistant Organisms: None Reported Past Surgical History: No Surgical Hx Reported Additional Past Anesthesia/Blood Transfusion Reaction / Comment(s): no family hx of anesthesia problems Past Psychological History: No Psychological Hx Reported Smoking Status: Current every day smoker Past Alcohol Use History: Occasional Past Drug Use History: None Reported Medications and Allergies Home Medications Medication Instructions Recorded Confirmed Type Prochlorperazine [Compazine] 10 mg PO Q6H PRN #30 tab 06/07/24 Rx Allergies Allergy/AdvReac Type Severity Reaction Status Date / Time No Known Allergies Allergy Verified 06/07/24 08:07 Physical Exam Vitals: Vital Signs Temp Pulse Resp BP Pulse Ox 06/07/24 07:32 62 16 104/84 97 06/07/24 02:00 57 L 17 114/62 96 06/06/24 19:04 74 18 126/69 98 06/06/24 17:07 98.0 F 68 18 147/89 100 Intake and Output 06/06/24 06/07/24 06/07/24 22:59 06:59 14:59 Other: Weight 93.894 kg Results CBC & Chem 7: 06/07/24 05:54 06/07/24 05:54 Labs: Abnormal Lab Results - Last 24 Hours (Table) 06/06/24 06/07/24 06/07/24 Range/Units 17:44 05:54 05:54 RBC 4.05 L (4.40-5.60) X 10*6/uL Hgb 12.7 L (13.0-17.0) g/dL MCV 102.0 H (80.0-97.0) FL MCHC 30.8 L (32.0-37.0) g/dL Chloride 108 H 112 H (98-107) mmol/L Carbon Dioxide 21.4 L (21.6-31.8) mmol/L BUN 8.7 L (9.0-27.0) mg/dL BUN/Creatinine Ratio 8.70 L (12.00-20.00) Ratio Calcium 8.4 L (8.7-10.3) mg/dL Total Protein 6.0 L (6.3-8.2) g/dL
[2024-06-07 12:12] VITALS: BP 122/55; PULSE 78; RESP 18; TEMP 98
== END 2024-06-07 12:24 | disposition home or self-care (01) ==
LOC: EC 16:36 → 6NMEDSUR 20:04
PROVIDERS: ADMIT Hospitalist; ATTEND Hospitalist
DX: R55 Syncope and collapse (principal); S09.90XA Unspecified injury of head, initial encounter; W01.198A Fall on same level from slipping, tripping and stumbling with subsequent striking against other object, initial encounter; H53.149 Visual discomfort, unspecified; G43.109 Migraine with aura, not intractable, without status migrainosus; F17.200 Nicotine dependence, unspecified, uncomplicated
CPT/HCPCS: 96374; 96361; 99285; 36415; 93005; 93306; 80053; 80048; 84484; 85025 ×2; 85610; 85730; 71046; 72125; 70450; G0378 ×2; J2270

== ENCOUNTER 2024-09-26 14:07 | Observation (INO) | payer OTHER ==
[2024-09-26] MEDS: LORazepam 2 MG/ML INJ IV STA (14:30)
[2024-09-26] MEDS: SODIUM CHLORIDE 0.9% 1,000 ML IV STA (14:32)
--- NOTE | 2024-09-26 14:39 | ED ---
General Adult HPI - General Chief complaint: Syncope Stated complaint: Syncope, seizures Time Seen by Provider: 09/26/24 14:19 Source: family, EMS, RN notes reviewed Mode of arrival: EMS Limitations: no limitations - History of Present Illness Initial comments: This is a 29-year-old male with personal and family history of syncopal episodes presenting via EMS with family in attendance for syncope/seizure-like activity today., States patient had a syncopal episode with subsequent convulsing upon leaving [facility] at 1309 today. EMS was called with patient having a total of 3 convulsive episodes with subsequent confusion. Family denies patient having urinary incontinence or tongue biting. Family states patient's last episode of seizure-like activity was 2 months ago. States he has an upcoming neurology appointment but has not had a seizure workup since the episodes began. Patient was seen in this ER on 02/19/2024 and 06/06/2024 for syncopal episodes with head CT performed in May 2024. Patient having convulsive episode during time of initial physical exam. Upon reentering 10 minutes later, patient is fully A&O x 4, complaining of left sided headache with pressure noted behind left eye. Denies nausea, left-sided epiphora or rhinorrhea. Onset/Timin -: hour(s) Time: 13:09 Severity scale (1-10): 8 Associated Symptoms: headaches - Related Data Home Medications Medication Instructions Recorded Confirmed No Known Home Medications 09/26/24 09/26/24 Allergies Allergy/AdvReac Type Severity Reaction Status Date / Time No Known Allergies Allergy Verified 09/26/24 17:16 Review of Systems ROS Statement: Those systems with pertinent positive or pertinent negative responses have been documented in the HPI. ROS Other: All systems not noted in ROS Statement are negative. Past Medical History Past Medical History: Asthma, Syncope Additional Past Medical History / Comment(s): last summer had a few episodes of passing out, has happened several times since then, very brief episodes, family hx. of long QT, see Dr Grady H & P History of Any Multi-Drug Resistant Organisms: None Reported Past Surgical History: No Surgical Hx Reported Additional Past Anesthesia/Blood Transfusion Reaction / Comment(s): no family hx of anesthesia problems Past Psychological History: No Psychological Hx Reported Smoking Status: Current every day smoker Past Alcohol Use History: Occasional Past Drug Use History: None Reported General Exam - General Exam Comments Initial Comments: Nurse states she found a vape pen in patient's pocket -unsure of contents Limitations: no limitations General appearance: other (Patient having convulsions and nonresponsive at time of exam after notification by RN) Head exam: Present: atraumatic, normocephalic, normal inspection Eye exam: Present: normal appearance, PERRL, EOMI. Absent: scleral icterus, conjunctival injection, periorbital swelling ENT exam: Present: normal exam, mucous membranes moist Neck exam: Present: normal inspection. Absent: tenderness, meningismus, lymphadenopathy Respiratory exam: Present: normal lung sounds bilaterally. Absent: respiratory distress, wheezes, rales, rhonchi, stridor, accessory muscle use, decreased b reath sounds, prolonged expiratory Cardiovascular Exam: Present: regular rate, normal rhythm, normal heart sounds. Absent: systolic murmur, diastolic murmur, rubs, gallop, clicks GI/Abdominal exam: Present: soft, normal bowel sounds. Absent: distended, tenderness, guarding, rebound, rigid Extremities exam: Present: normal inspection, full ROM, normal capillary refill. Absent: tenderness, pedal edema, joint swelling, calf tenderness Back exam: Present: normal inspection Neurological exam: Present: altered (Seizure-like activity during time of physical exam) Psychiatric exam: Present: normal affect, normal mood Skin exam: Present: warm, dry, intact, normal color. Absent: rash Course Vital Signs 09/26/24 09/26/24 09/26/24 14:08 14:11 14:31 Temperature 98.4 F Pulse Rate 75 84 Respiratory 18 18 Rate Blood Pressure 132/82 130/91 O2 Sat by Pulse 100 99 Oximetry 09/26/24 09/26/24 16:03 17:48 Temperature Pulse Rate 61 61 Respiratory 12 12 Rate Blood Pressure 129/88 114/76 O2 Sat by Pulse 100 100 Oximetry Medical Decision Making - Medical Decision Making Was pt. sent in by a medical professional or institution (, PA, CHEMICAL MANAGER, urgent care, hospital, or senior living...) When possible be specific @ -No Did you speak to anyone other than the patient for history (EMS, parent, family, police, friend...)? What history was obtained from this source @ -Family provided portion of HPI Did you review nursing and triage notes (agree or disagree)? Why? @ -I reviewed and agree with nursing and triage notes Were old charts reviewed (outside hosp., previous admission, EMS record, old EKG, old radiological studies, urgent care reports/EKG's, senior living records)? Report findings @ -Prior charts from ER visits 02/19/2024 and 06/06/2024 reviewed. No concerning findings at those times either. Differential Diagnosis (chest pain, altered mental status, abdominal pain women, abdominal pain men, vaginal bleeding, weakness, fever, dyspnea, syncope, headache, dizziness, GI bleed, back pain, seizure, CVA, palpatations, mental health, musculoskeletal)? @ -Differential Seizure: Recurrent seizure disorder, febrile seizure, alcohol withdrawal, stimulants, meningitis, encephalitis, intercranial hemorrhage, intracranial tumor, stroke, eclampsia, thyrotoxicosis, hypocalcemia, hyponatremia, hypernatremia, hypomagnesemia, psychogenic, this is not meant to be an all-inclusive list. EKG interpreted by me (3pts min.). @ -Sinus rhythm with solitary T wave inversion in lead III, new when compared to May 2024. No ST deviation. Ventricular rate 67 bpm, EL 170 ms, QRS 92 ms, QTc 364 ms. X-rays interpreted by me (1pt min.). @ -None done CT interpreted by me (1pt min.). @ -Brain CT shows no acute intracranial process. U/S interpreted by me (1pt. min.). @ -None done What testing was considered but not performed or refused? (CT, X-rays, U/S, labs)? Why? @ -None What meds were considered but not given or refused? Why? @ -None Did you discuss the management of the patient with other professionals (professionals i.e. DrKsenia, PA, CHEMICAL MANAGER, lab, RT, psych nurse, social work associate, industrial hygienist, teacher, emergency communications officer, keycase assembler)? Give summary @ -Spoke to Dr. Madrid who advised EEG and continue IV Keppra. Spoke to Dr. Molina of [facility] for patient admission. Was smoking cessation discussed for >3mins.? @ -No Was critical care preformed (if so, how long)? @ -No Were there social determinants of health that impacted care today? How? (Homelessness, low income, unemployed, alcoholism, drug addiction, transportation, low edu. Level, literacy, decrease access to med. care, longterm, rehab)? @ -No Was there de-escalation of care discussed even if they declined (Discuss DNR or withdrawal of care, Hospice)? DNR status @ -No What co-morbidities impacted this encounter? (DM, HTN, Smoking, COPD, CAD, Cancer, CVA, ARF, Chemo, Hep., AIDS, mental health diagnosis, sleep apnea, morbid obesity)? @ -None Was patient admitted / discharged? Hospital course, mention meds given and route, prescriptions, significant lab abnormalities, going to OR and other pertinent info. @ -Lab work and UA generally unremarkable. Tox screen positive for marijuana. Brain CT shows no acute intracranial process. Patient initially provided IV Ativan for ongoing convulsions with resolution following. Started on IV normal saline and Keppra. Provided IV migraine cocktail of Toradol, Benadryl and Reglan for left-sided headache. Patient notes ongoing left-sided head pain and provided additional IV Dilaudid and Toradol. Spoke to Dr. Madrid who advised EEG and continue IV Keppra. Spoke to Dr. Molina of [facility] for patient admiss ion. Discussed patient with Dr. Lopez. Undiagnosed new problem with uncertain prognosis? @ -No Drug Therapy requiring intensive monitoring for toxicity (Heparin, Nitro, Insulin, Cardizem)? @ -No Were any procedures done? @ -No Diagnosis/symptom? @ -Seizure-like activity Acute, or Chronic, or Acute on Chronic? @ -Acute Uncomplicated (without systemic symptoms) or Complicated (systemic symptoms)? @ -Complicated Side effects of treatment? @ -No Exacerbation, Progression, or Severe Exacerbation? @ -No Poses a threat to life or bodily function? How? (Chest pain, [place], [place], pneumonia, PE, COPD, DKA, ARF, appy, cholecystitis, CVA, Diverticulitis, Homicidal, Suicidal, threat to staff... and all critical care pts) @ -No - Lab Data Result diagrams: 09/26/24 15:13 09/26/24 15:13 Lab Results 09/26/24 09/26/24 09/26/24 Range/Units 15:13 15:13 15:13 WBC 5.6 (3.8-10.6) k/uL RBC 4.18 L (4.30-5.90) m/uL Hgb 13.2 (13.0-17.5) gm/dL Hct 41.8 (39.0-53.0) % MCV 100.1 H (80.0-100.0) fL MCH 31.7 (25.0-35.0) pg MCHC 31.7 (31.0-37.0) g/dL RDW 12.8 (11.5-15.5) % Plt Count 242 (150-450) k/uL MPV 7.2 Neutrophils % 57 % Lymphocytes % 35 % Monocytes % 5 % Eosinophils % 1 % Basophils % 0 % Neutrophils # 3.2 (1.3-7.7) k/uL Lymphocytes # 2.0 (1.0-4.8) k/uL Monocytes # 0.3 (0-1.0) k/uL Eosinophils # 0.1 (0-0.7) k/uL Basophils # 0.0 (0-0.2) k/uL Sodium 141 (137-145) mmol/L Potassium 4.7 (3.5-5.1) mmol/L Chloride 111 H (98-107) mmol/L Carbon Dioxide 23 (22-30) mmol/L Anion Gap 7 mmol/L BUN 10 (9-20) mg/dL Creatinine 0.88 (0.66-1.25) mg/dL Est GFR (CKD-EPI)AfAm >90 (>60 ml/min/1.73 sqM) Est GFR (CKD-EPI)NonAf >90 (>60 ml/min/1.73 sqM) Glucose 80 (74-99) mg/dL Calcium 8.9 (8.4-10.2) mg/dL Total Bilirubin 0.5 (0.2-1.3) mg/dL AST 30 (17-59) U/L ALT 37 (4-49) U/L Alkaline Phosphatase 42 (38-126) U/L Total Protein 6.1 L (6.3-8.2) g/dL Albumin 3.7 (3.5-5.0) g/dL Urine Color Colorless Urine Appearance Clear (Clear) Urine pH 6.5 (5.0-8.0) Ur Specific [place] 1.003 (1.001-1.035) Urine Protein Negative (Negative) Urine Glucose (UA) Negative (Negative) Urine Ketones Negative (Negative) Urine Blood Negative (Negative) Urine Nitrite Negative (Negative) Urine Bilirubin Negative (Negative) Urine Urobilinogen <2.0 (<2.0) mg/dL Ur Leukocyte Esterase Negative (Negative) Urine Opiates Screen Not Detected (NotDetected) Ur Oxycodone Screen Not Detected (NotDetected) Urine Methadone Screen Not Detected (NotDetected) Ur Barbiturates Screen Not Detected (NotDetected) U Tricyclic Antidepress Not Detected (NotDetected) Ur Phencyclidine Scrn Not Detected (NotDetected) Ur Amphetamines Screen Not Detected (NotDetected) U Methamphetamines Scrn Not Detected (NotDetected) U Benzodiazepines Scrn Not Detected (NotDetected) Urine Cocaine Screen Not Detected (NotDetected) U Marijuana (THC) Screen Detected H (NotDetected) Serum Alcohol <10 mg/dL Disposition Clinical Impression: Syncope, Seizure-like activity, Left-sided headache Disposition: ADMITTED IP TO THIS [facility] Condition: Good Is patient prescribed a controlled substance at d/c from ED?: No Time of Disposition: 16:50 Decision Date: 09/26/24 Decision Time: 16:50
--- NOTE | 2024-09-26 15:16 | CT ---
EXAMINATION TYPE: CT brain wo con DATE OF EXAM: 09/26/2024 3:10 PM COMPARISON: Multiple prior CT head studies, most recently dated 06/06/2024.. CLINICAL INDICATION: Male, 29 years old with history of SZ, seizure TECHNIQUE: Brain: Axial CT images of the brain were obtained with coronal and sagittal reformats created and rev iewed. Contrast used: None. Oral contrast used: None. CT DLP: 1163.1 mGycm, Automated exposure control for dose reduction was used. FINDINGS: Brain: Extra-axial spaces: No abnormal extra-axial fluid collections. Ventricular system: Within normal limits Cerebral parenchyma: No acute intraparenchymal hemorrhage or mass effect. The reed-white junction is well differentiated. Cerebellum: Unremarkable. Mass effect: No evidence of midline shift. Intracranial vasculature: unremarkable Soft tissues: Normal. Calvarium/osseous structures: No depressed skull fracture. Paranasal sinuses and mastoid air cells: Mild scattered paranasal sinus disease. Visualized orbits: Orbital contents are intact. IMPRESSION: No acute intracranial process. [facility], , 09/26/2024 3:14 PM
[2024-09-26] MEDS: levETIRAcetam IV 500 MG/5 ML VIAL IVP ONE (15:18)
[2024-09-26] MEDS: diphenhydrAMINE 50 MG/ML 1 ML VIAL IVP STA (15:19)
[2024-09-26] MEDS: KETOROLAC 15 MG/ML 1 ML VIAL IVP STA ×2 (15:19→16:22)
[2024-09-26] MEDS: METOCLOPRAMIDE 5 MG/ML 2 ML VIAL IVP STA (15:19)
[2024-09-26 15:27] LABS: Basophils % (A) 0 %; Eosinophils # (A) 0.1 k/uL (0-0.7); Eosinophils % (A) 1 %; HCT 41.8 % (39.0-53.0); HGB 13.2 gm/dL (13.0-17.5); Lymphocytes % (A) 35 %; MCH 31.7 pg (25.0-35.0); MCHC 31.7 g/dL (31.0-37.0); MCV 100.1 fL (80.0-100.0); Mean Platelet Volume 7.2; Monocytes # (A) 0.3 k/uL (0-1.0); Monocytes % (A) 5 %; Neutrophils # (A) 3.2 k/uL (1.3-7.7); Neutrophils % (A) 57 %; Platelet Count 242 k/uL (150-450); RBC 4.18 m/uL (4.30-5.90); RDW 12.8 % (11.5-15.5); WBC 5.6 k/uL (3.8-10.6)
[2024-09-26 15:32] LABS: Appearance,Urine Clear (Clear); Bilirubin,Urine Negative (Negative); Blood,Urine Negative (Negative); Color,Urine Colorless; Glucose,Urine (UA) Negative (Negative); Ketones,Urine Negative (Negative); Leukocyte Esterase,Urine Negative (Negative); Nitrite,Urine Negative (Negative); PH, Urine 6.5 (5.0-8.0); Protein,Urine Negative (Negative); Specific Gravity,Urine 1.003 (1.001-1.035); Urobilinogen,Urine <2.0 mg/dL (<2.0)
[2024-09-26] MEDS: levETIRAcetam IV 1,000 MG in SODIUM CHLORIDE 0.9% 250 ML IVPB ONE (15:32)
[2024-09-26 15:41] LABS: ALT 37 U/L (4-49); AST 30 U/L (17-59); African American GFR (CKD) >90 (>60 ml/min/1.73 sqM); Albumin 3.7 g/dL (3.5-5.0); Alcohol <10 mg/dL; Alkaline Phosphatase 42 U/L (38-126); Anion Gap 7 mmol/L; Blood Urea Nitrogen 10 mg/dL (9-20); Calcium 8.9 mg/dL (8.4-10.2); Carbon Dioxide 23 mmol/L (22-30); Chloride 111 mmol/L (98-107); Glucose 80 mg/dL (74-99); Non-African American GFR(CKD) >90 (>60 ml/min/1.73 sqM); Potassium 4.7 mmol/L (3.5-5.1); Sodium 141 mmol/L (137-145); Total Bilirubin 0.5 mg/dL (0.2-1.3); Total Protein 6.1 g/dL (6.3-8.2)
[2024-09-26 15:45] LABS: Amphetamine Screen,Urine Not Detected (NotDetected); Barbiturate Screen,Urine Not Detected (NotDetected); Benzodiazepines Screen,Urine Not Detected (NotDetected); Cocaine Screen,Urine Not Detected (NotDetected); Methadone Screen, Urine Not Detected (NotDetected); Opiate Screen,Urine Not Detected (NotDetected); Oxycodone Screen, Urine Not Detected (NotDetected); Phencyclidine Screen,Urine Not Detected (NotDetected); Tricyclic Antidepressant,Urine Not Detected (NotDetected); Urn Cannabinoid Scrn Detected (NotDetected)
[2024-09-26] MEDS: HYDROmorphone 0.5 MG/0.5 ML SYRINGE IVP STA (16:22)
[2024-09-26] MEDS ORDERED: ACETAMINOPHEN TAB 325 MG TAB PO PRN (16:48)
[2024-09-26] MEDS ORDERED: NALOXONE 0.4 MG/ML 1 ML VIAL IV PRN ×2 (16:48→16:50)
[2024-09-26] MEDS ORDERED: ONDANSETRON 4 MG/2 ML VIAL IVP PRN (16:50)
--- NOTE | 2024-09-26 18:23 | P.HPIM ---
History of Present Illness H&P Date: 09/26/24 Chief Complaint: Seizure, headache 29-year-old man with history of nicotine, marijuana use, otherwise no known medical history presented for evaluation after multiple convulsive episodes with his only complaint being headache. History is taken from family who is at bedside. Patient was at [employer] today when he was noted by bystanders to start complaining of significant headache, after which he was noted to have a convulsive episode. He was taken outside into the sun but had another episode of significant headache and convulsion/seizure, was brought back inside and had another episode before being brought in by ambulance for further evaluation. Patient reports that the headache he is experiencing is severe, left-sided, feels as if its behind the eye. It is associated with photophobia. It is also associated with phonophobia. He does endorse nausea. He denies vomiting. He denies fevers, chills. In the emergency room, patient was afebrile, 132/82, heart rate 75, 100% on room air. CBC showed mildly elevated MCV, otherwise unremarkable. Basic metabolic p elio, liver function tests were unremarkable. Urinalysis was unremarkable. Urine tox screen was positive for marijuana, alcohol level was negative. Brain CT was negative for any acute intracranial process. EKG showed normal sinus rhythm, normal axis, normal UT interval, normal QTc, no evidence of ischemia. Case was discussed with the emergency room provider patient was admitted to observation for new onset seizure/migraine. All Systems reviewed and pertinent positives and negatives noted in HPI, all other symptoms are negative Gen: In NAD, non-toxic HEENT: normocephalic, atraumatic, hearing acuity is intant, mucous membranes moist CVS: perfusing all extremities well, no pitting edema, Respiratory: symmetric chest expansion, no accessory muscle use, GI: soft, NTTP, ND, : no suprapubic tenderness, no CVA tenderness MSK/Derm: no rashes, cyanosis Neuro: CN II-XII intact, no motor weakness, Labs and images as above Assessment/plan: New onset seizure Left-sided migraine -Admit to observation, telemetry - Neurology consult, EEG - Keppra 1000 mg every 12 hours initiated - Ativan 4 mg every 4 hours as needed for seizures - Seizure precautions, aspiration precautions - Nausea medication: Zofran as needed - Pain control: Toradol as needed - Trial of sumatriptan Patient is full code DVT prophylaxis with early ambulation Past Medical History Past Medical History: Asthma, Syncope Additional Past Medical History / Comment(s): last summer had a few episodes of passing out, has happened several times since then, very brief episodes, family hx. of long QT, see Dr Grady H & P History of Any Multi-Drug Resistant Organisms: None Reported Past Surgical History: No Surgical Hx Reported Additional Past Anesthesia/Blood Transfusion Reaction / Comment(s): no family hx of anesthesia problems Past Psychological History: No Psychological Hx Reported Smoking Status: Current every day smoker Past Alcohol Use History: Occasional Past Drug Use History: None Reported Medications and Allergies Home Medications Medication Instructions Recorded Confirmed Type No Known Home Medications 09/26/24 09/26/24 History Allergies Allergy/AdvReac Type Severity Reaction Status Date / Time No Known Allergies Allergy Verified 09/26/24 17:16 Physical Exam Osteopathic Statement: *. No significant issues noted on an osteopathic structural exam other than those noted in the History and Physical/Consult. Vitals: Vital Signs Pulse Resp BP Pulse Ox 09/26/24 17:48 61 12 114/76 100 09/26/24 16:03 61 12 129/88 100 09/26/24 14:31 84 18 130/91 99 09/26/24 14:11 132/82 09/26/24 14:08 75 18 100 Intake and Output 09/26/24 09/26/24 09/26/24 06:59 14:59 22:59 Other: Weight 95.254 kg Results CBC & Chem 7: 09/26/24 15:13 09/26/24 15:13 Labs: Abnormal Lab Results - Last 24 Hours (Table) 09/26/24 09/26/24 09/26/24 Range/Units 15:13 15:13 15:13 RBC 4.18 L (4.30-5.90) m/uL MCV 100.1 H (80.0-100.0) fL Chloride 111 H (98-107) mmol/L Total Protein 6.1 L (6.3-8.2) g/dL U Marijuana (THC) Screen Detected H (NotDetected)
[2024-09-26] MEDS: SUMAtriptan succinate 25 MG TAB PO STA ×2 (21:37→22:21)
[2024-09-26] MEDS: levETIRAcetam IV 500 MG/5 ML VIAL IVP SCH (22:10)
[2024-09-26] MEDS: LORazepam 2 MG/ML INJ IV PRN (22:38)
[2024-09-27] MEDS: KETOROLAC 15 MG/ML 1 ML VIAL IVP PRN (08:16)
[2024-09-27 09:12] VITALS: TEMP 97.4
[2024-09-27 10:21] LABS: Basophils # (A) 0.02 X 10*3/uL (0.00-0.10); Basophils % (A) 0.4 %; Eosinophils # (A) 0.11 X 10*3/uL (0.04-0.35); HCT 38.1 % (39.6-50.0); HGB 12.5 g/dL (13.0-17.0); Lymphocytes # (A) 2.23 X 10*3/uL (0.90-5.00); MCH 32.2 pg (27.0-32.0); MCHC 32.8 g/dL (32.0-37.0); MCV 98.2 FL (80.0-97.0); Mean Platelet Volume 9.8 FL (9.5-12.2); Monocytes # (A) 0.42 X 10*3/uL (0.20-1.00); Monocytes % (A) 7.5 %; NRBC Per 100 WBC 0 X 10*3/uL (0.00-0.01); Neutrophils # (A) 2.79 X 10*3/uL (1.80-7.70); Neutrophils % (A) 49.9 %; Platelet Count 229 X 10*3/uL (140-440); RBC 3.88 X 10*6/uL (4.40-5.60); RDW 12.5 % (11.5-14.5); WBC 5.58 X 10*3/uL (4.50-10.00)
[2024-09-27 10:45] LABS: ALT 33 U/L (10-49); AST 24 U/L (14-35); Albumin 3.5 g/dL (3.8-4.9); Albumin/Globulin Ratio 1.84 Ratio (1.60-3.17); Alkaline Phosphatase 53 U/L (41-126); Bilirubin, Conjugated <0.20 mg/dL (0.20-0.40); Bilirubin,Unconjugated >0.10 mg/dL (0.20-1.00); Blood Urea Nitrogen 8.9 mg/dL (9.0-27.0); Calcium 8.6 mg/dL (8.7-10.3); Carbon Dioxide 23.5 mmol/L (21.6-31.8); Chloride 110 mmol/L (96-109); Globulin 1.9 g/dL (1.6-3.3); Glucose 94 mg/dL (70-110); Magnesium 1.7 mg/dL (1.5-2.4); Potassium 4.3 mmol/L (3.5-5.5); Sodium 142 mmol/L (135-145); Total Bilirubin 0.3 mg/dL (0.3-1.2); Total Protein 5.4 g/dL (6.2-8.2)
[2024-09-27] MEDS: LORazepam 1 MG/0.5 ML VIAL IV PRN (11:00)
[2024-09-27] MEDS ORDERED: LORazepam 1 MG/0.5 ML VIAL IV PRN (11:19)
[2024-09-27 11:20] VITALS: BP 132/81; PULSE 60; RESP 18
--- NOTE | 2024-09-27 13:14 | P.CNNES ---
History of Present Illness Consult date: 09/27/24 Requesting physician: Mercedez Molina Reason for Consult: seizures History of Present Illness: This is a 29-year-old gentleman who presents to the emergency department because of headache and seizure-like activity. Some family members are at bedside as well as his girlfriend. Yesterday he was at [employer] and he stated that he started developing headache over the left side and felt was a dull throbbing headache was able 8/10 and it was located over the left temporal region radiating to the left retro-orbital all the way back to the head he started not feeling well so he sat in the car but then he came back from the car and sat in the back in the jew holding his head. He did have photophobia and phonophobia. He had 1 episode of vomiting and felt nauseous. Patient, family members who are at bedside Patient had seizure-like activity in which his eyes was rolling and body was shaking and episode lasted 1 to 2 minutes. Denies any tongue bite, urinary or bowel incontinence. Then he had another seizure-like episode 5 to 6 minutes later lasting 1 to 2 minutes and then had an third seizure-like activity again 5 to 6 minutes after the second episode. He states that since November 2023 he has been having seizure-like activity but at that time he was having chest pain. He is not on any seizure medication. He is pending to be evaluated by outpatient neurologist he is not sure who he was about to see but when I gave him the names of the outpatient neurologist he thinks Dr. Choe but does not know exactly when is his appointment. He does acknowledge that he has a lot of stress in his personal life with his girlfriend and 2 young children. He used to work at the [employer] but because of his passing out he stopped working and needs clearance. He has used nicotine and he states he is uses marijuana as well. Some of the work-up during this hospital visit consisted of: Reviewed the lab workup CT of the head is reported as no acute intracranial process. I personally reviewed the CT and I agree with the report. Review of Systems As per HPI. Past Medical History Past Medical History: Asthma, Syncope Additional Past Medical History / Comment(s): last summer had a few episodes of passing out, has happened several times since then, very brief episodes, family hx. of long QT, see Dr Grady H & P History of Any Multi-Drug Resistant Organisms: None Reported Past Surgical History: No Surgical Hx Reported Additional Past Anesthesia/Blood Transfusion Reaction / Comment(s): no family hx of anesthesia problems. no hx of recieving anesthesia or blood products. Past Psychological History: No Psychological Hx Reported Smoking Status: Current every day smoker Past Alcohol Use History: Rare Additional Past Alcohol Use History / Comment(s): 1ppd down to 1-2 cigs/day, has smoked for 5-6 yrs. Past Drug Use History: Marijuana Additional Drug Use History / Comment(s): medical card, uses daily Medications and Allergies Home Medications Medication Instructions Recorded Confirmed Type No Known Home Medications 09/26/24 09/26/24 History Allergies Allergy/AdvReac Type Severity Reaction Status Date / Time No Known Allergies Allergy Verified 09/26/24 17:16 Physical Examination - Vital Signs Vital Signs: Vital Signs Temp Pulse Pulse Resp BP BP Pulse Ox 09/27/24 11:19 60 18 132/81 99 09/27/24 08:00 97.4 F L 61 16 128/72 99 09/27/24 03:48 97.0 F L 62 14 97/63 100 09/26/24 23:00 97.9 F 83 18 125/74 99 09/26/24 22:50 97.9 F 71 18 110/63 100 09/26/24 22:22 63 18 119/65 100 09/26/24 21:51 97.6 F 77 18 114/57 100 09/26/24 17:48 61 12 114/76 100 09/26/24 16:03 61 12 129/88 100 09/26/24 14:31 84 18 130/91 99 09/26/24 14:11 98.4 F 132/82 09/26/24 14:08 75 18 100 Intake and Output 09/26/24 09/27/24 09/27/24 22:59 06:59 14:59 Other: Voiding Method Toilet Urinal # Voids 1 Weight 95.254 kg GENERAL: The patient is lying in bed and is not in acute distress. NEUROLOGICAL: Higher mental function: The patient is awake, alert, oriented to self, place and time. Patient is following commands. No aphasia and no neglect. Cranial nerves: The pupils are round, equal and reactive to light and accommodation. Visual dykes are full to confrontation throughout. Extraocular movement is intact no nystagmus is noted. Facial sensation is normal to touch throughout. The facial strength is normal throughout. Hearing is normal bilaterally to hand rub. Tongue is midline and moved [id number] without any difficulty. No dysarthria is noted. Shoulder shrug is normal bilaterally. Motor: The strength is 5 over 5 throughout. Normal tone and bulk. Cerebellum: Normal finger to nose bilaterally. Sensation: Sensation is normal to touch throughout. Results - Laboratory Findings CBC and BMP: 09/27/24 06:03 09/27/24 06:03 Abnormal Lab Findings: Abnormal Labs 09/26/24 09/26/24 09/26/24 15:13 15:13 15:13 RBC 4.18 L Hgb Hct MCV 100.1 H MCH Chloride 111 H BUN BUN/Creatinine Ratio Calcium Unconjugated Bilirubin Total Protein 6.1 L Albumin Prolactin U Marijuana (THC) Screen Detected H 09/27/24 09/27/24 06:03 06:03 RBC 3.88 L Hgb 12.5 L Hct 38.1 L MCV 98.2 H MCH 32.2 H Chloride 110 H BUN 8.9 L BUN/Creatinine Ratio 8.90 L Calcium 8.6 L Unconjugated Bilirubin >0.10 L Total Protein 5.4 L Albumin 3.5 L Prolactin 18.100 H U Marijuana (THC) Screen Assessment and Plan Assessment: This notice a 29-year-old gentleman whose been passing out the status at 29-ye ar-old gentleman who has been passing out since November 2023 in association with chest pain and he had a tilt table test which was unremarkable and he presents emergency department because of headache and seizure-like activity lasting 1 to 2 minutes and he had 3 seizure-like activity at [employer] according to family members. Seizure-like activity was captured on the EEG and it is nonepileptic in nature. New onset seizure-like activity seems more non-epileptic in nature. Patient does acknowledge she has stressors in life (girlfriend and has two young children) Cephalgia: Unsure if truly migraine vs functional History of chest pain Nicotine use Marijuana use Plan: The patient was given Keppra 1 g once in the ED then will start on Keppra 1 g 1000 mg every [address] Madrid's request according to the ED note. I discontinued the Keppra and I started the patient on Topamax 50 mg twice a day which can be increased to 100 mg bid within a week. Max has benefit for migraines as well as for antiseizures. Topamax side-effect was explained. Patient was on Ativan 4 mg every 4 hours as needed and I change it to 1 mg every 4 hours. Seizure precaution seizure pads Per the [facility] because of the seizure, avoid driving for 6 months until seizure-free, avoid heights, avoid swimming assisted or using heavy machinery Recommend outpatient MRI of the brain with and without seizure protocol Recommend the patient to follow-up with the outpatient neurologist within 2 weeks as well as with a psychiatrist/psychologist regarding his underlying stressors. Patient was counseled on tobacco cessation as well as cessation of the marijuana use Defer the rest of the medical management department other specialist The plan is discussed with patient, primary attending and his nurse. Thank you for the consultation Time with Patient: Greater than 30
--- NOTE | 2024-09-27 14:30 | P.DS ---
Providers Date of admission: 09/26/24 16:49 Expected date of discharge: 09/27/24 Attending physician: Mercedez Molina MD Consults: 09/26/24 16:50 Consult Physician Routine Consulting Provider: Yanet Madrid Consult Reason/Comments: seizures Do you want consulting provider notified?: Yes Consult Physician Stat Consulting Provider: Yanet Madrid Consult Reason/Comments: Seizure-like activity Do you want consulting provider notified?: Already Contacted Primary care physician: Stated None Hospital Course: New onset seizure Left-sided migraine Hospital Course: 29-year-old man with history of nicotine, marijuana use, otherwise no known medical history presented for evaluation after multiple convulsive episodes with his only complaint being headache. In the emergency room, patient was afebrile, 132/82, heart rate 75, 100% on room air. CBC showed mildly elevated MCV, otherwise unremarkable. Basic metabolic panel, liver function tests were unremarkable. Urinalysis was unremarkable. Urine tox screen was positive for marijuana, alcohol level was negative. Brain CT was negative for any acute intracranial process. EKG showed normal sinus rhythm, normal axis, normal VA interval, normal QTc, no evidence of ischemia. Case was discussed with the emergency room provider patient was admitted to observation for new onset seizure/migraine. Patient was started on Keppra, underwent EEG which was negative for epileptiform discharge. Patient was felt to have pseudoseizure. Patient was also felt to have complex migraine and was treated with sumatriptan with resolution of his migraine and was started on Topamax on discharge. Patient was referred to the [facility] to establish care with a PCP. I spent 32 minutes on this discharge Gen: In NAD, non-toxic HEENT: normocephalic, atraumatic, hearing acuity is intant, mucous membranes moist CVS: perfusing all extremities well, no pitting edema, Respiratory: symmetric chest expansion, no accessory muscle use, GI: soft, NTTP, ND, : no suprapubic tenderness, no CVA tenderness MSK/Derm: no rashes, cyanosis Neuro: CN II-XII intact, no motor weakness, Patient Condition at Discharge: Good Plan - Discharge Summary Discharge Rx Participant: No New Discharge Prescriptions: New Ibuprofen [Motrin] 600 mg PO Q6HR PRN #30 tab PRN Reason: Headache Topiramate [Topamax] 50 mg PO BID #90 tab Acetaminophen Tab [Tylenol] 650 mg PO Q6HR PRN tab PRN Reason: Mild Pain Or Fever > 100.5 Discharge Medication List Acetaminophen Tab [Tylenol] 650 mg PO Q6HR PRN tab 09/27/24 [Rx] Ibuprofen [Motrin] 600 mg PO Q6HR PRN #30 tab 09/27/24 [Rx] Topiramate [Topamax] 50 mg PO BID #90 tab 09/27/24 [Rx] Follow up Appointment(s)/Referral(s): [facility] [NON-STAFF] - 1 Week Patient Instructions/Handouts: Ibuprofen (By mouth) Activity/Diet/Wound Care/Special Instructions: We will start you on 50mg twice a day of topamax to prevent migraines, but please increase to 100mg twice a day in one week from now if you are still having episodes of migraines. Please set up a follow up appointment with the [facility] for establishment of care with a primary care doctor. It's imperative that you quit smoking both nicotine and marijuana as both of these can be triggers of migraines. Discharge Disposition: HOME SELF-CARE
[2024-09-27] MEDS ORDERED: levETIRAcetam IV 500 MG/5 ML VIAL IVP SCH (21:00)
[2024-09-27] MEDS ORDERED: TOPIRAMATE 25 MG TAB PO SCH (21:00)
--- NOTE | 2024-09-28 00:24 | EEG ---
ELECTROENCEPHALOGRAM REPORT CLINICAL HISTORY: This is a 29-year-old gentleman with multiple seizure-like activity. The video EEG is obtained to evaluate for seizure epileptiform activity. RELEVANT MEDICATIONS: 1. Keppra. 2. Ativan. EEG TYPE: This is a routine 21-channel EEG with video using the 10/20 electrode placement system. DESCRIPTION: Wakefulness and drowsiness are obtained. During the awake state, the posterior- dominant rhythm consists of [id number] voltage of 9.5-10.5 Hz activity that is well-modulated and well sustained. There is no physiological stage 2 sleep architecture. There is no focal slowing. Interictal and ictal: One episode was captured and it was at 8:02 a.m. of the recording, lasting 40 seconds in which electrographically, the left hemisphere consisted of 12 to13 Hz activity intermixed with theta and delta activity and artifact without any evolution or any seizure or discharges noted during this episode and without any postictal event. As stated earlier, the episode lasted for 40 seconds. Clinically, the patient's head was turned to the left, body was shaking and that was noted even with the blanket being covered over, and after the episode, the patient was conversing with the fuel quality tech. The episode is nonepileptic in seizure. There is no epileptiform discharge or seizure on the EEG. ACTIVATION PROCEDURE: Photic stimulation did not evoke a posterior driving response. There is no abnormality during the photic stimulation. Hyperventilation is not performed. CLINICAL INTERPRETATION: This is a normal routine EEG during awake and drowsy state. The patient's episode that was captured is nonepileptic seizure. Otherwise, no focal slowing, epileptiform discharge, or seizure on the EEG. Clinical correlation is recommended. MMODL / IJN: [id number] / MTDD
== END 2024-09-27 16:52 | disposition home or self-care (01) ==
LOC: EC 14:07 → 6NMEDSUR 16:49 → 3SCARD 22:07
PROVIDERS: ADMIT Internal Medicine; ATTEND Internal Medicine
DX: R56.9 Unspecified convulsions (principal); G43.909 Migraine, unspecified, not intractable, without status migrainosus; F17.200 Nicotine dependence, unspecified, uncomplicated
CPT/HCPCS: 96376 ×2; 96365; 96375; 99285; 36415; 95816; 93005; 82552; 80053; 80048; 80076; 83735; 85025 ×2; 81003; 84146 ×2; 82550; 80306; 80320; 70450; G0378 ×3; J2060 ×2; J1200; J2765; J1953 ×2; J1885 ×2; J1171